=== PATIENT | male | born 1970 | race Caucasian/White ===

== ENCOUNTER 2018-03-25 17:19 | Inpatient (IN) | payer SELFPAY, OTHER | END 2018-03-28 18:19 | disposition left against medical advice (07) | LOC: ED 17:19 → MU 03-26 00:33 → ED 17:19 → MU 03-26 00:17 → ED 17:19 → MU 23:20 → ED 17:19 → MU 23:20 ==

== ENCOUNTER 2018-04-07 16:55 | Emergency (ER) | payer SELFPAY ==
[~2018-04-07] VITALS: Ht 170.2 cm; Wt 78.5 kg
[~2018-04-07 16:55] MED LIST: MOT800 PO; PENICILLIN VK500 MG PO
[2018-04-07 17:12] VITALS: Ht 170.2 cm; Wt 78.5 kg
[2018-04-07 19:38] VITALS: BP 110/70
== END 2018-04-07 19:38 | disposition home or self-care (01) ==
LOC: ED 16:55
DX: K04.7 Periapical abscess without sinus (principal)